=== PATIENT | male | born 1960 | race Caucasian/White ===

== ENCOUNTER 2017-03-15 01:59 | Emergency (ER) | payer OTHER ==
[~2017-03-15] VITALS: Ht 185.4 cm; Wt 158.8 kg
[2017-03-15 03:05] LABS: Basophils # (auto) 0 uL; Basophils % (auto) 0.3 % (0.0-2.0); Eosinophils # (auto) 0.2 uL; Eosinophils % (auto) 2.1 % (0.0-7.0); Hematocrit 45.6 % (41.0-53.0); Hemoglobin 14.7 g/dL (13.5-17.5); Lymphocytes # (auto) 2.6 uL; Lymphocytes % (auto) 36.7 % (10.0-50.0); Mean Corpuscular Hemoglobin 29.8 pg (28.0-32.0); Mean Corpuscular Hgb Conc. 32.3 g/dL (32.0-36.0); Mean Corpuscular Volume 92.4 fL (80.0-100.0); Mean Platelet Volume 7.4 fL (7.4-10.4); Monocytes # (auto) 0.7 uL; Monocytes % (auto) 9.7 % (0.0-12.0); Neutrophils # (auto) 3.7 uL; Neutrophils % (auto) 51.2 % (37.0-80.0); Platelet Count (auto) 274 10^3/uL (140-450); Red Cell Distribution Width 13.7 % (11.6-16.0); White Blood Cell 7.2 10^3/uL (4.4-10.8)
[2017-03-15 03:20] LABS: INR 0.97 (0.9-1.15); Partial Thromboplastin Time 25.2 sec (22.64-33.71); Prothrombin Time 10.5 sec (9.37-12.3)
[2017-03-15 03:23] LABS: Albumin 3.5 g/dL (3.4-5.0); Anion Gap 7 (5-15); Aspartate Aminotransferase 20 U/L (15-37); BUN/Creatinine Ratio 14.9; Blood Urea Nitrogen 20 mg/dL (7-18); Calcium 8.2 mg/dL (8.5-10.1); Carbon Dioxide 26 mmol/L (21-32); Chloride 110 mmol/L (98-107); GFR African American 71 mL/min; GFR Non-African American 58 mL/min; Glucose 103 mg/dL (74-106); Potassium 4.4 mmol/L (3.5-5.1); Sodium 143 mmol/L (136-145)
[2017-03-15 03:27] LABS: Alkaline Phosphatase 51 U/L (45-117); Bilirubin, Total 0.2 mg/dL (0.2-1.0); Total Protein 7.1 g/dL (6.4-8.2)
[2017-03-15 04:01] LABS: B-Type Natriuretic Peptide < 5.0 pg/mL (0-100)
[2017-03-15 04:02] LABS: Temperature: 20.8 C (20.0-25.0)
[2017-03-15] MEDS ORDERED: ASPirin 81 mg TAB ONE (04:18)
[2017-03-15] MEDS ORDERED: ASPirin 81 mg TAB PO ONE (04:30)
[2017-03-15 07:40] VITALS: BP 153/107
[2017-03-15] MEDS ORDERED: LORazepam 0.5 MG TAB PO ONE (08:00)
== END 2017-03-15 09:06 | disposition left against medical advice (07) ==
LOC: EDBD 01:59 → ER 02:08
DX: G45.9 Transient cerebral ischemic attack, unspecified (principal); I10 Essential (primary) hypertension; F41.9 Anxiety disorder, unspecified; R51 Headache
CPT/HCPCS: 36415; 70450; 71010; 80053; 83880; 84484; 85025; 85610; 85730; 93005